=== PATIENT | female | born 1980 | race Caucasian/White ===

== ENCOUNTER 2017-01-23 05:10 | Inpatient (IN) ==
[2017-01-20 11:48] LABS: MANUAL DIFF NEEDED? NO; URINE SOURCE VOIDED
[2017-01-20 12:10] LABS: HEMATOCRIT 32.7 % (37.0-47.0); HEMOGLOBIN 10.1 g/dL (12.0-16.0); RBC 3.93 XMIL (4.2-5.4)
[2017-01-20 12:11] LABS: BASO% 0.5 % (0.0-0.8); EOS# 0.17 X1000 (0.0-0.7); EOS% 2.9 % (0.0-10.0); IMM GRAN# 0.01 X1000 (0.0-0.04); IMM GRAN% 0.2 % (0.0-0.5); LYMPH# 1.59 X1000 (1.2-3.4); LYMPH% 26.8 % (20.5-51.1); MCH 25.7 PG (27-31); MCHC 30.9 g/dL (33-37); MCV 83.2 FL (81-99); MONO# 0.37 X1000 (0.11-0.59); MONO% 6.2 % (1.7-9.3); MPV 10.6 FL (7.4-10.4); NEUT% 63.4 % (42.2-75.2); PLT 163 X1000 (130-400)
[2017-01-20 12:21] LABS: BILIRUBIN URINE NEGATIVE (NEGATIVE); BLOOD URINE 3+ (NEGATIVE); CLARITY CLEAR (CLEAR); COLOR YELLOW; GLUCOSE URINE NEGATIVE (NEGATIVE); LEUKOCYTES URINE NEGATIVE (NEGATIVE); NITRITE URINE NEGATIVE (NEGATIVE); PROTEIN URINE NEGATIVE (NEGATIVE); SP GRAVITY URINE 1.005; URINE MICROSCOPIC NEEDED? YES; UROBILINOGEN URINE NORMAL
[2017-01-20 12:22] LABS: URINE EPITHELIAL CELLS <10 /HPF (<10); URINE RBC <10 /HPF (<10); URINE WBC <10 /HPF (<10)
--- NOTE | 2017-01-22 22:41 | HISTORY AND PHYSICAL ---
HISTORY OF PRESENT ILLNESS: Medina is a 36-year-old white female 2, para 2 who presented office complaints of chronic pelvic pain. Patient also has difficulty with urination. The urodynamics did not show a stress incontinence but difficulty with pelvic relaxation. Patient has menorrhagia that is unresponsive to conservative measures. PAST MEDICAL HISTORY: Anxiety. PAST SURGICAL HISTORY: Tubal ligation. ALLERGIES: Penicillin. MEDICATIONS: BuSpar, Effexor. SOCIAL HISTORY: The patient is a smoker. PHYSICAL EXAM: GENERAL: White female in no apparent distress. VITAL SIGNS: Afebrile, vital signs stable. CARDIOVASCULAR: Regular rate, rhythm. LUNGS: Clear. ABDOMEN: Soft, nontender, cervix parous, uterus is small, mobile, nontender, no mass or tenderness. PLAN: Patient consent for laparoscopic assisted vaginal with bilateral salpingectomy. Risks of surgery include bleeding, infection, anesthesia, blood transfusion, exploratory laparotomy if complications arise all discussed at length, informed consent obtained. cc: Moy Hamm MD
[2017-01-23] MEDS ORDERED: DIPRIVAN 1% ONE ×2 (06:49)
[2017-01-23] MEDS ORDERED: VERSED ONE ×2 (06:50)
[2017-01-23] MEDS ORDERED: FENTANYL ONE ×4 (06:50→07:45)
[2017-01-23] MEDS ORDERED: EPHEDRINE ONE ×2 (06:50)
[2017-01-23] MEDS ORDERED: KEFZOL 1 GM/D5W 1 GM/50 ML IVPB ONE ×2 (06:52)
[2017-01-23] MEDS ORDERED: TRANSDERM-SCOP ONE ×2 (06:52)
[2017-01-23] MEDS ORDERED: LR 1,000 ML ONE ×9 (06:52→09:25)
[2017-01-23] MEDS ORDERED: SENSORCAINE 0.25%/EPI 1:200,000 ONE ×2 (06:54)
[2017-01-23 07:55] LABS: URINE MICROSCOPIC NEEDED? NO; URINE SOURCE CATH
[2017-01-23] MEDS ORDERED: LR 1,000 ML IV SCH ×4 (08:00→11:00)
[2017-01-23] MEDS ORDERED: KEFZOL 1 GM/D5W 1 GM/50 ML IVPB IV ONE (08:00)
[2017-01-23 08:02] LABS: BILIRUBIN URINE NEGATIVE (NEGATIVE); BLOOD URINE NEGATIVE (NEGATIVE); CLARITY CLEAR (CLEAR); COLOR YELLOW; GLUCOSE URINE NEGATIVE (NEGATIVE); LEUKOCYTES URINE NEGATIVE (NEGATIVE); NITRITE URINE NEGATIVE (NEGATIVE); PROTEIN URINE NEGATIVE (NEGATIVE); UROBILINOGEN URINE NORMAL
[2017-01-23] MEDS ORDERED: VENTOLIN HFA ONE ×2 (08:15)
[2017-01-23] MEDS ORDERED: ZOFRAN ONE ×2 (08:15)
[2017-01-23] MEDS ORDERED: TORADOL ONE ×2 (08:15)
[2017-01-23] MEDS ORDERED: XYLOCAINE-MPF 2% ONE ×2 (08:15)
[2017-01-23] MEDS ORDERED: QUELICIN ONE ×2 (08:15)
[2017-01-23] MEDS ORDERED: ZEMURON ONE ×2 (08:15)
[2017-01-23] MEDS ORDERED: NEOSTIGMINE ONE ×2 (08:15)
[2017-01-23] MEDS ORDERED: DECADRON ONE ×2 (08:15)
[2017-01-23] MEDS ORDERED: ROBINUL ONE ×2 (08:15)
[2017-01-23] MEDS: DILAUDID ONE ×8 (09:25→10:19)
[2017-01-23] MEDS ORDERED: DILAUDID PCA VIAL ONE (09:25)
[2017-01-23] MEDS ORDERED: ZOFRAN IV PRN ×3 (09:58→10:28)
[2017-01-23] MEDS ORDERED: DILAUDID-HP 30 MG in NS 27 ML IV PRN (09:58)
[2017-01-23] MEDS ORDERED: NARCAN IV PRN ×2 (09:58→10:03)
[2017-01-23] MEDS ORDERED: SODIUM CHLORIDE 0.9% INJ PRN ×2 (09:58→10:03)
[2017-01-23] MEDS ORDERED: PHENERGAN IV PRN ×2 (09:58→10:03)
[2017-01-23] MEDS ORDERED: DILAUDID PCA VIAL IV PRN (10:03)
[2017-01-23] MEDS ORDERED: OFIRMEV 1000 MG/ISOTONIC SOLN 1,000 MG/100 ML BOTTLE ONE (10:04)
[2017-01-23] MEDS ORDERED: AMBIEN PO PRN (10:08)
[2017-01-23] MEDS ORDERED: PERI MEDS (DERMOPLAST/NUPERCAINAL/TUCKS) MISC PRN (10:10)
[2017-01-23] MEDS ORDERED: ESTRADERM 0.05 MG/24 HR PATCH TD ONE ×2 (10:15→14:30)
[2017-01-23] MEDS ORDERED: EPIFOAM FOAM TOP SCH (10:15)
[2017-01-23] MEDS ORDERED: DEMEROL IV PRN (10:25)
[2017-01-23] MEDS ORDERED: PHENERGAN IM PRN (10:26)
[2017-01-23] MEDS ORDERED: NORCO-10 PO PRN (10:27)
[2017-01-23] MEDS ORDERED: NORCO-5 PO PRN (10:28)
[2017-01-23] MEDS ORDERED: ZOFRAN ODT PO PRN (10:29)
[2017-01-23] MEDS ORDERED: MYLICON PO PRN (10:30)
[2017-01-23] MEDS ORDERED: VALIUM ONE (10:58)
[2017-01-23] MEDS: OFIRMEV 1000 MG/ISOTONIC SOLN 1,000 MG/100 ML BOTTLE IV SCH ×3 (12:29→22:19)
[2017-01-23] MEDS: COLACE PO SCH ×2 (12:30→20:17)
[2017-01-23] MEDS: MYLICON PO SCH ×3 (13:05→20:17)
[2017-01-23] MEDS: TORADOL IV SCH ×2 (14:48→20:17)
[2017-01-23] MEDS: NICODERM PATCH TD SCH (15:21)
[2017-01-23] MEDS: LR 1,000 ML IV SCH ×2 (17:31→20:20)
--- NOTE | 2017-01-23 18:10 | Extremity Venous Study ---
EXAM: Venous U/S Right Leg HISTORY: calf pain TECHNIQUE: COMPARISON: None. FINDINGS: Right lower extremity venous Doppler ultrasound: There is normal flow and compressibility of the veins of the right lower extremity. No thrombus. Normal augmentation. IMPRESSION: No evidence of deep venous thrombosis. A pulmonary report was given at 5:52 PM Electronically signed by Freeman Cruz 01/23/2017 6:07 PM
[2017-01-24] MEDS: TORADOL IV SCH (02:18)
[2017-01-24] MEDS: LR 1,000 ML IV SCH ×2 (02:18→11:50)
[2017-01-24] MEDS: OFIRMEV 1000 MG/ISOTONIC SOLN 1,000 MG/100 ML BOTTLE IV SCH (04:30)
[2017-01-24 07:08] LABS: HEMOGLOBIN 8.5 g/dL (12.0-16.0)
[2017-01-24] MEDS ORDERED: D/C PCA XX ONE (08:30)
[2017-01-24] MEDS: NICODERM PATCH TD SCH (09:36)
[2017-01-24] MEDS: MYLICON PO SCH (09:36)
[2017-01-24] MEDS: COLACE PO SCH (09:36)
[2017-01-24 11:58] VITALS: BP 115/67
--- NOTE | 2017-01-24 14:10 | DISCHARGE SUMMARY ---
ADMISSION DATE: 01/23/2017 DISCHARGE DATE: 01/24/2017 ADMISSION DIAGNOSIS: Chronic pelvic pain with menorrhagia, adnexal mass. DISCHARGE DIAGNOSIS: Chronic pelvic pain with menorrhagia, adnexal mass with endometriosis. PRINCIPAL PROCEDURES: Laparoscopically-assisted vaginal with bilateral salpingo- oophorectomy. DISCHARGE DIET: Regular. DISCHARGE DISPOSITION: Home. DISCHARGE FOLLOWUP: Two weeks for incision check. DISCHARGE DISPOSITION: Home. DISCHARGE MEDICATIONS: 1. Percocet 10 #30. 2. Vivelle Dot patch 0.1 mg. DISCHARGE HEMATOCRIT: 28. PREOPERATIVE HEMATOCRIT: 32. POSTOPERATIVE COURSE: Complicated by right calf pain. Doppler ultrasound was negative. The patient did report having this pain prior to her surgery. cc: Moy Hamm MD
--- NOTE | 2017-02-14 02:38 | OPERATIVE NOTE ---
PREOPERATIVE DIAGNOSIS: Chronic pelvic pain. POSTOPERATIVE DIAGNOSES: 1. Chronic pelvic pain. 2. [employer] stage III endometriosis. PROCEDURE PERFORMED: Laparoscopic-assisted vaginal hysterectomy, with bilateral salpingo- oophorectomy. SURGEON: Dr. Emmanuel Hamm. BIOLOGY TUTOR: Dr. Shaila Sutton. ANESTHESIA: General endotracheal. ESTIMATED BLOOD LOSS: 200 mL. DRAINS: Lea catheter. DESCRIPTION OF PROCEDURE: The patient was taken to the operating room. She was prepped and draped in the usual sterile fashion after general anesthesia was administered. The patient was placed in hanging stirrups. Time-out was performed. Everybody in the room in agreement with the stated procedure. A small subumbilical incision was carried out with the scalpel. Veress needle placed, and insufflation was utilized. Once adequate pneumoperitoneum was achieved, an 11 mm port was placed through VersaStep sleeve. The patient was placed in deep Trendelenburg, and two 5 mm VersaStep ports placed in the right and left lateral margin of the rectus muscle respectively. Inspection of pelvis revealed extensive endometrial implants along the anterior and posterior cul de sac. Both adnexa appeared to have immature implants as well. Using the ligature, the infundibulopelvic ligament was clamped, cauterized, and cut on both sides. This was taken down through the broad ligament, which was easily dissected using the LigaSure. The anterior reflection of the peritoneum was then dissected, exposing the endopelvic fascia, and reflecting the bladder flap quite easily. Both uterine arteries were then clamped, cauterized, but were not cut. Next, our attention was turned vaginally, and weighted speculum was placed. The cervix was grasped with a Rhonda clamp. Cervix was infiltrated with 0.25% Marcaine with epinephrine circumferentially for hydrodissection. An anterior incision was then carried out along the cervical vaginal reflection. Anterior peritoneum was then easily entered, and the uterus was flipped anteriorly without difficulty. The remaining uterine artery pedicle was clamped, cut, and tied with Marycruz clamps and 0 Vicryl suture. Uterosacral ligaments were clamped, cut, tied, and held again with Marycruz clamps and 0 Vicryl suture. The uterus and cervix were then removed from the posterior vaginal reflexion with Ramila scissors. Vaginal cuff was then grounded with 0 Vicryl suture in a running locking fashion. Excellent hemostasis was noted. All counts were correct. The peritoneum was reapproximated with 0 Maxon in a running fashion, incorporating both uterosacral ligaments and ablating the posterior cul de sac. The vaginal cuff was then closed with 0 Vicryl suture in a [id number] fashion x3. Next, our attention turned abdominally after lace machine operator and assistants gloves were changed. Copious irrigation was used. The pelvis was reinspected, and overall noted to be hemostatic. Both ureters could be seen peristalsing without difficulty. All counts were correct. Trocars were then removed after CO2 was allowed to escape the abdominal peritoneal cavity. The trocar sites were closed with 3-0 Polysorb in inverted mattress fashion. 0.5% Marcaine with epinephrine was used for local anesthesia. The patient was taken to the recovery room in stable condition. cc: Moy Hamm MD
== END 2017-01-24 14:25 | disposition home or self-care (01) ==
LOC: P.WC 05:10
PROVIDERS: ADMIT Obstetrics & Gynecology; ATTEND Obstetrics & Gynecology

== ENCOUNTER 2019-01-03 19:45 | Observation (INO) ==
[2019-01-03 20:39] LABS: BASO# 0.02 X1000 (0.0-0.2); BASO% 0.2 % (0.0-0.8); EOS# 0.01 X1000 (0.0-0.7); EOS% 0.1 % (0.0-10.0); HEMOGLOBIN 14.5 g/dL (12.0-16.0); IMM GRAN# 0.02 X1000 (0.0-0.04); IMM GRAN% 0.2 % (0.0-0.5); LYMPH# 1.67 X1000 (1.2-3.4); LYMPH% 15.1 % (20.5-51.1); MCH 31.5 PG (27-31); MCHC 35.4 g/dL (33-37); MCV 89.1 FL (81-99); MONO# 0.93 X1000 (0.11-0.59); MONO% 8.4 % (1.7-9.3); NEUT# 8.43 X1000 (1.4-6.5); PLT 226 X1000 (130-400); RDW 13.7 % (11.5-14.5); WBC 11.08 X1000 (4.8-10.8)
[2019-01-03] MEDS ORDERED: ZOFRAN ODT PO ONE (20:41)
[2019-01-03 20:52] LABS: BILIRUBIN URINE NEGATIVE (NEGATIVE); BLOOD URINE 2+ (NEGATIVE); CLARITY SL. CLOUDY (CLEAR); COLOR AMBER; GLUCOSE URINE NEGATIVE (NEGATIVE); KETONE URINE 1+(Small) mg/dL (NEGATIVE); LEUKOCYTES URINE TRACE (NEGATIVE); NITRITE URINE NEGATIVE (NEGATIVE); PH URINE 6.5; PROTEIN URINE 1+(30 mg/dL) mg/dL (NEGATIVE); UROBILINOGEN URINE 1 mg/dL
[2019-01-03 20:53] LABS: URINE BACTERIA 1+ /HFP; URINE CAST NONE SEEN /LPF; URINE CRYSTAL NONE SEEN /HPF; URINE EPITHELIAL CELLS <10 /HPF (<10); URINE SOURCE CLEAN CATCH; URINE WBC <10 /HPF (<10); URINE YEAST NONE SEEN /HPF
[2019-01-03] MEDS ORDERED: ZOFRAN IV ONE (21:00)
--- NOTE | 2019-01-03 21:00 | PROVIDER DOCUMENTATION ---
This chart was entered by Sobeida Monsivais Scribe, acting as scribe for Terrell Nicholas MD. HPI-General Adult - General Chief Complaint: Nausea/Vomiting Stated Complaint: FEMALE , N/V Time Seen by Provider: 01/03/19 20:04 Source: patient Allergies/Adverse Reactions: Patient Allergies Allergy/AdvReac Type Severity Reaction Status Date / Time Penicillins Allergy Severe ANAPHYLAXIS Verified 09/07/18 12:26 hydroxyzine HCl * AdvReac Severe hallucinati Verified 09/07/18 12:26 [From Vistaril] ons hydroxyzine pamoate * AdvReac Severe hallucinati Verified 09/07/18 12:26 [From Vistaril] ons Home Medications: Home Medication List Medication Instructions Recorded Confirmed Last Taken Type Venlafaxine HCl [Effexor] 150 mg PO BID 08/22/14 01/12/17 05/04/15 History Clonazepam [Klonopin] 1 mg PO TID 10/13/14 01/12/17 05/04/15 History Buspirone [Buspar] 15 mg PO BID 05/05/15 01/12/17 05/04/15 History Ketorolac [Toradol] 10 mg PO Q6H PRN PRN #20 tablet 10/30/15 Unknown Rx - History of Present Illness -Gen Adult Nature of Presenting Problems: pt is a 38 year old white female with history of seizures, anxiety, and depression complaining of persistent nausea and vomiting since 2am yesterday. Denies any sick contacts at home. Went to PCP, Dr. Douglas Mcfarland, today and was told to come to ED because they could not hear any bowel sounds. Patient has been unable to keep anything down. Location of Pain/Injury: reports: abdomen Pain Radiation: reports: no radiation Quality of Pain: reports: aching Severity: reports: moderate Onset/Duration: reports: 2 days ago Timing: reports: still present Context/Activities at Onset: reports: none Modifying Factors: improves with: nothing Associated Symptoms: reports: anxiety, fever/chills (101), nausea, vomiting, weakness Similar Symptoms Previously?: No Recently seen or treated by another doctor?: No Review of Systems - Adult - REVIEW OF SYSTEMS - ADULT Constitutional: reports: no symptoms reported, fever. denies: chills Eyes: reports: no symptoms reported Ears, Nose, Mouth & Throat: reports: no symptoms reported Cardiovascular: denies: chest pain Respiratory: reports: no symptoms reported. denies: cough, shortness of breath, wheezing Gastrointestinal: reports: abdominal pain, diarrhea, nausea, vomiting Genitourinary: reports: no symptoms reported Musculoskeletal: reports: no symptoms reported Integumentary: reports: no symptoms reported Neurological: reports: no symptoms reported. denies: dizziness/vertigo, headache/migraines Endocrine: reports: no symptoms reported Hematologic/Lymphatic: reports: no symptoms reported Allergic/Immunologic: reports: no symptoms reported All Other Systems: Reviewed and Negative Past History - Adult - PAST MEDICAL HISTORY-ADULT Review of Records: reports: Old Records Reviewed, Nursing Assessment Review, Medications Reviewed, Social history reviewed & non-contributory. Major Childhood Illnesses: reports: denies history Cardiovascular: reports: denies history Respiratory: reports: denies history Gastrointestinal: reports: denies history Obstetrical/Gynecological: reports: denies history Genitourinary: reports: denies history Musculoskeletal: reports: denies history Neurological: reports: Seizures/Epilepsy Psychiatric: reports: anxiety, depression Endocrine/Immune: reports: denies history Other Conditions: reports: denies history - PRIOR SURGERIES/PROCEDURES Surgical/Procedure History: reports: hysterectomy, BTL, tonsillectomy, other - PRIOR HOSPITALIZATIONS Prior Hospitalizations: reports: for other non-related (sleep study) - IMMUNIZATION STATUS Flu Vaccine: NUTD - FAMILY HISTORY Family History: reviewed, not pertinent - SOCIAL HISTORY Living Situation: family Physical Exam-General - PHYSICAL EXAM-ADULT Initial Vital Signs Reviewed: Yes - CONSTITUTIONAL General Appearance: appears well, alert, no apparent distress - EYES Eyes: PERRL/EOMI, pink conjunctivae - HEAD, EARS, NOSE, MOUTH & THROAT HENMT: normocephalic/atraumatic, moist mucous membranes, normal ENT inspection, TMs normal - NECK Neck: non-tender, full range of motion, supple, normal inspection - RESPIRATORY Respiratory: lungs clear - CARDIOVASCULAR Cardiovascular: regular rate, rhythm - GASTROINTESTINAL (ABDOMEN) Abdominal Exam: non tender, soft, tenderness (diffuse tenderness) - MUSCULOSKELETAL Extremity: normal range of motion, non-tender, normal gait, normal inspection - SKIN Integumentary: normal color, warm/dry - NEUROLOGIC Neurologic: grossly normal - PSYCHIATRIC Psych/Mental Status: normal mood/affect, normal thought content, normal thought process, oriented x 3 Progress - PLAN OF CARE/RESULTS Progress/Plan/Lab Results: Vital Signs - 8 hr 01/03/19 19:49 Temperature 98.5 F Pulse Rate 86 Respiratory Rate 18 O2 Sat by Pulse Oximetry 100 Laboratory Results - last 24 hr 01/03/19 01/03/19 20:02 20:24 WBC 11.08 H RBC 4.60 Hgb 14.5 Hct 41.0 MCV 89.1 MCH 31.5 H MCHC 35.4 RDW Std Deviation 13.7 Plt Count 226 MPV 11.0 H Immature Gran % (Auto) 0.2 Neut % (Auto) 76.0 H Lymph % (Auto) 15.1 L Randall % (Auto) 8.4 Eos % (Auto) 0.1 Baso % (Auto) 0.2 Immature Gran # (Auto) 0.02 Neut # (Auto) 8.43 H Lymph # (Auto) 1.67 Randall # (Auto) 0.93 H Eos # (Auto) 0.01 Baso # (Auto) 0.02 Urine Source CLEAN CATCH Urine Color ELIZABETH Urine Clarity SL. CLOUDY A Urine pH 6.5 Ur Specific [place] 1.020 Urine Protein 1+(30 mg/dL) A Urine Ketones 1+(Small) A Urine Blood 2+ A Urine Nitrite NEGATIVE Urine Bilirubin NEGATIVE Urine Urobilinogen 1 Urine Microscopic RBC 10-20 A Urine WBC TRACE A Urine Microscopic WBC <10 Ur Epithelial Cells <10 Urine Crystals NONE SEEN Urine Bacteria 1+ Urine Casts NONE SEEN Urine Yeast NONE SEEN Urine Glucose NEGATIVE Orders Category Date Time Status AMYLASE [CHEM] Stat Lab 01/03/19 20:24 Received CBC WITH DIFF [HEME] Stat Lab 01/03/19 20:24 Completed COMPREHENSIVE METABOLIC PANEL [CHEM] Stat Lab 01/03/19 20:24 Received LIPASE [CHEM] Stat Lab 01/03/19 20:[address] W/POSS RFLX CULT [URINALYSIS] Stat Lab 01/03/19 20:02 Completed URINE CULTURE [RM] Routine Lab 01/03/19 20:54 Ordered Ondansetron Odt [Zofran Odt] Med 01/03/19 20:41 Discontinued 4 mg PO NOW ONE Result Diagrams: 01/03/19 20:24 01/03/19 20:24 - REASSESSMENT Reassessment #1 Time Reassessed: 23:45 Status: unchanged Reassessment Comment: continues to be nauseated and uncomfortable,abdomen is supple - CT/MRI 1 CT Study: Abdomen, Pelvis CT Results: NAD, no obstruction - CONSULTS/PCP/HOSPITALIST Notification #1 *Consult/PCP/Hospitalist*: Dr. Mcdowell, hospitalist Time Discussed: 01:20 Consult Disposition: Admit Departure - Departure Date of Disposition Decision: 01/04/19 Time of Disposition Decision: 01:21 DIAGNOSIS: Volume depletion Intractable nausea and vomiting Qualifiers: Vomiting type: unspecified Qualified Code(s): R11.2 - Nausea with vomiting, unspecified Hematuria Qualifiers: Hematuria type: unspecified type Qualified Code(s): R31.9 - Hematuria, unspecified Disposition: ADMITTED INPATIENT 09 Certified Medical Emergency: Emergent Condition: Stable Referrals and Follow-Ups: Douglas Cr MD [Primary Care Provider] - - Critical Care Note This patient required my direct & personal management of CC.: No Attestation - Physician/ MORAIMA Attestation Patient care was provided by Advanced Practice Provider:: No The physician spent face to face time with patient:: Yes Advanced Practice Provider documentation review:: Supervising physician onsite and consulted in the evaluation and care of this patient. The physician did have a face to face encounter with the patient. This chart was documented by the indicated scribe, (Sobeida Monsivais Scribe) and accurately reflects the services I performed and decisions made by me, Terrell Nicholas MD, as attested by the provider's signature.
[2019-01-03 21:10] LABS: AGAP 19; ALBUMIN 4.1 g/dL (3.5-5.0); ALKALINE PHOSPHATASE 88 U/L (32-104); BUN 6 mg/dL (8-22); CALCIUM 9.2 mg/dL (8.8-10.2); CHLORIDE 97 mmol/L (98-107); COSMO 269; CREATININE 0.6 mg/dL (0.5-0.9); ESTIMATED GFR > 60; GLUCOSE 113 mg/dL (70-104); GOT 21 U/L (10-30); GPT 12 U/L (10-36); LIPASE 36 U/L (13-60); POTASSIUM 3.7 mmol/L (3.5-5.1); SODIUM 135 mmol/L (136-145); TCO2 19 mmol/L (25-35); TOTAL PROTEIN 7.1 g/dL (6.3-8.3)
[2019-01-03] MEDS ORDERED: PHENERGAN IM ONE (22:12)
[2019-01-03] MEDS ORDERED: NS 1,000 ML IV ONE (23:36)
[2019-01-04] MEDS ORDERED: NS 1,000 ML IV ONE (01:39)
[2019-01-04] MEDS: PHENERGAN IM PRN ×4 (02:13→21:03)
[2019-01-04 03:09] LABS: UR AMPHETAMINES QUAL NONE DETECTED (NONE DETECT); UR BARBITUATES QUAL NONE DETECTED (NONE DETECT); UR BENZODIAZEPIN QUAL PRESUMPTIVE POSITIVE (NONE DETECT); UR COCAINE QUAL NONE DETECTED (NONE DETECT); UR METHADONE QUAL NONE DETECTED (NONE DETECT); UR METHAMPHETAMINE QUAL NONE DETECTED (NONE DETECT); UR OPIATES QUAL PRESUMPTIVE POSITIVE (NONE DETECT); UR OXYCODONE QUAL NONE DETECTED (NONE DETECT); UR PCP QUAL NONE DETECTED (NONE DETECT)
[2019-01-04 03:10] LABS: UR CANNABINOIDS QUAL PRESUMPTIVE POSITIVE (NONE DETECT); UR PROPOXYPHENE QUAL NONE DETECTED (NONE DETECT); UR TCA QUAL NONE DETECTED (NONE DETECT)
[2019-01-04] MEDS: ZOFRAN IV PRN ×3 (03:17→19:35)
[2019-01-04 05:07] LABS: INFLUENZA A NEGATIVE (NEGATIVE); INFLUENZA B NEGATIVE (NEGATIVE)
--- NOTE | 2019-01-04 06:12 | Diag Imaging Result Doc PS360 ---
EXAM: CT ABD/PELVIS W/IV CONT ONLY HISTORY: abdominal pain TECHNIQUE: CT abdomen and pelvis with intravenous contrast COMPARISON: None. FINDINGS: No calcified gallstones or adjacent inflammation. There are several tiny hepatic cysts. Normal spleen, pancreas, adrenal glands, and kidneys. No hydronephrosis. Normal aorta. The left renal vein goes behind the aorta. This is a normal variant. Normal appendix. No abscess. There is stool throughout the colon. No bowel obstruction. The urinary bladder is moderately distended and is normal. The uterus has been removed. No pelvic mass. IMPRESSION: 1.Mild constipation 2.Hysterectomy 3.A preliminary report was given at 11:21 PM on 01/03/2019 This exam was performed using automated exposure control, adjustment of mA or kV according to patient size, and/or use of iterative reconstruction technique. Electronically signed by Freeman Cruz 01/04/2019 6:09 AM
[2019-01-04 09:41] LABS: BASO# 0.01 X1000 (0.0-0.2); BASO% 0.1 % (0.0-0.8); EOS# 0.01 X1000 (0.0-0.7); EOS% 0.1 % (0.0-10.0); HEMOGLOBIN 13.5 g/dL (12.0-16.0); IMM GRAN# 0.01 X1000 (0.0-0.04); IMM GRAN% 0.1 % (0.0-0.5); LYMPH# 1.83 X1000 (1.2-3.4); MCH 30.8 PG (27-31); MCHC 34.6 g/dL (33-37); MCV 88.8 FL (81-99); MONO# 0.71 X1000 (0.11-0.59); MONO% 10.1 % (1.7-9.3); MPV 10.6 FL (7.4-10.4); NEUT# 4.47 X1000 (1.4-6.5); NEUT% 63.6 % (42.2-75.2); PLT 188 X1000 (130-400); RBC 4.39 XMIL (4.2-5.4); RDW 13.4 % (11.5-14.5); WBC 7.04 X1000 (4.8-10.8)
[2019-01-04 10:06] LABS: AGAP 10; ALBUMIN 3.7 g/dL (3.5-5.0); ALKALINE PHOSPHATASE 78 U/L (32-104); BUN 5 mg/dL (8-22); CALCIUM 8.5 mg/dL (8.8-10.2); CHLORIDE 101 mmol/L (98-107); COSMO 268; CREATININE 0.5 mg/dL (0.5-0.9); ESTIMATED GFR > 60; GLUCOSE 113 mg/dL (70-104); GOT 15 U/L (10-30); GPT 9 U/L (10-36); MAGNESIUM 1.6 mg/dL (1.5-2.7); POTASSIUM 2.9 mmol/L (3.5-5.1); SODIUM 135 mmol/L (136-145); TCO2 24 mmol/L (25-35); TOTAL PROTEIN 6.4 g/dL (6.3-8.3)
[2019-01-04] MEDS: POTASSIUM CHLORIDE 20 MEQ/SWI 20 MEQ/100 ML IVPB IV SCH ×2 (12:32→16:45)
[2019-01-04] MEDS: NS 1,000 ML IV SCH ×2 (13:51→22:47)
--- NOTE | 2019-01-04 13:59 | HISTORY AND PHYSICAL ---
CHIEF COMPLAINT: Nausea, vomiting, and abdominal pain. HISTORY OF PRESENT ILLNESS: This is a 38-year-old female with a reported history of seizures, anxiety, and depression. She presents to the Emergency Room complaining of nausea and vomiting for the past 36 hours. She states that she has been unable to take anything in orally since just after this episode started. She has not urinated in over 24 hours. She states that for the last 4 to 6 hours she has been dry heaving. She denied any black or bloody vomitus or stools. She did state that she had a subjective fever, chills, and generalized body aches. Of note, the patient does use marijuana, smoking it last within 48 hours prior to this incident. She went to her primary care physician prior to coming to the Emergency Room and upon examining the patient he sent her to the E.R. for evaluation. PAST MEDICAL HISTORY: 1. Seizures with the last one being many years ago. 2. Anxiety and depression. PAST SURGICAL HISTORY: Hysterectomy, tubal ligation, and endometrial surgery. SOCIAL HISTORY: She smokes about a pack a day. She uses marijuana. ALLERGIES: Penicillin and Vistaril with penicillin causing anaphylaxis and Vistaril causing hallucinations. HOME MEDICATIONS: A list will be obtained by the nursing staff and once verified we will review and restart it as appropriate. REVIEW OF SYSTEMS: Review of systems is discussed with the patient with pertinent positives stated in the HPI. She denied any syncope or dizziness, any chest pain or palpitations, any recent weight loss or weight gain, any night sweats, any shortness of breath or cough, any diarrhea or constipation, any black or bloody vomitus or stools, or any hematuria, dysuria, frequency, or urgency. PHYSICAL EXAMINATION: GENERAL: This is a 38-year-old female who is lying in the bed, drowsy but in no distress. VITAL SIGNS: Blood pressure is 135/72 with a heart rate of 79. Respirations are 18. Temperature is 98.7 oral with O2 saturations ranging from 97% to 98% on room air. EYES: Pupils are equal, round, and reactive to light. EOMs are intact. Sclerae are anicteric. HENT: Head is normocephalic, atraumatic. Mucous membranes are dry. NECK: Supple. Trachea is midline. CARDIOVASCULAR: Regular rate and rhythm. S1 and S2 are appreciated. No murmurs. She has no lower extremity edema. Calfs are nontender bilaterally. Peripheral pulses are palpable times 4 extremities. PULMONARY: Breath sounds are clear with no increased work of breathing noted. Chest rises and falls symmetrically with respiration. Chest wall is nontender to palpation. GASTROINTESTINAL: The abdomen is soft. She has some generalized tenderness. She is nondistended with bowel sounds in all 4 quadrants. SKIN: Warm and dry with no rashes or lesions noted. . NEUROLOGIC: She is alert and oriented times 3. Cranial nerves 2 through 12 are grossly intact. LABORATORY DATA: WBC is 11 with a hemoglobin of 14.5, hematocrit of 41, and platelets of 226. Sodium is 135, potassium 3.7, BUN 6, and creatinine 0.6 with a glucose of 113. Urinalysis reveals 2 + blood with 10-20 microscopic red blood cells and trace white blood cells but less than 10 microscopic white blood cells and epithelial cells. Toxicology urine drug screen is presumptive positive for opiates, benzodiazepines, and cannabinoids. Influenza A and B are negative. Urine culture revealed no growth. CT of the abdomen and pelvis revealed mild constipation and a hysterectomy. There is stool throughout the colon. No bowel obstruction. ASSESSMENT AND PLAN: 1. Dehydration. 2. Nausea and vomiting. 3. Recent cannabinoid use. 4. Microscopic hematuria. 5. Leukocytosis. PLAN: The patient has been admitted to the medical/surgical floor. She was given a liter bolus. We will continue IV hydration. We will trend electrolytes and replete as appropriate. We will recheck a CBC and CMP. She will remain n.p.o. as she has continued to be nauseated with dry heaves. For nausea we will continue Zofran every 4 hours p.r.n. and if nausea is not relieved we will add Phenergan 25 mg IM every 6 hours. Identify home medications and continue. I did discuss with the patient hyperemesis cannabinoid syndrome explaining that this could follow cannabinoid use. The patient did state understanding. She will remain n.p.o. and once able to tolerate p.o. we will start to advance her diet. Further treatments pending hospital course. Dictated by MAURICIO Sepulveda for Brain Mcdowell MD cc: MAURICIO Sepulveda MD
[2019-01-04] MEDS: CARAFATE PO SCH ×2 (15:24→21:03)
--- NOTE | 2019-01-05 00:31 | HISTORY AND PHYSICAL ---
ADDENDUM: CHIEF COMPLAINT: Nausea, vomiting. HISTORY OF PRESENT ILLNESS: Patient is a 38-year-old female who has a known history of seizures, anxiety, depression. She presented to the hospital with a 2-day history of nausea, vomiting, abdominal pain. Denies any sick contacts. States her nausea is actually improving a little bit currently. We will admit to the hospital. IV fluids. We will advance diet as tolerated. Further orders as needed. cc: Brain Mcdowell MD
[2019-01-05] MEDS: ZOFRAN IV PRN (01:56)
[2019-01-05] MEDS: PHENERGAN IM PRN ×2 (03:46→11:13)
[2019-01-05 06:23] LABS: BASO# 0.02 X1000 (0.0-0.2); BASO% 0.3 % (0.0-0.8); EOS# 0.02 X1000 (0.0-0.7); EOS% 0.3 % (0.0-10.0); HEMATOCRIT 40.9 % (37.0-47.0); HEMOGLOBIN 14.3 g/dL (12.0-16.0); IMM GRAN# 0.01 X1000 (0.0-0.04); IMM GRAN% 0.1 % (0.0-0.5); LYMPH# 1.76 X1000 (1.2-3.4); LYMPH% 25.8 % (20.5-51.1); MCH 31.2 PG (27-31); MCV 89.1 FL (81-99); MONO# 0.73 X1000 (0.11-0.59); MONO% 10.7 % (1.7-9.3); MPV 10.4 FL (7.4-10.4); NEUT# 4.28 X1000 (1.4-6.5); NEUT% 62.8 % (42.2-75.2); PLT 191 X1000 (130-400); RBC 4.59 XMIL (4.2-5.4); RDW 13.4 % (11.5-14.5); WBC 6.82 X1000 (4.8-10.8)
[2019-01-05] MEDS: NS 1,000 ML IV SCH (06:27)
[2019-01-05] MEDS: CARAFATE PO SCH ×4 (06:27→15:23)
[2019-01-05 07:01] LABS: AGAP 12; ALBUMIN 3.8 g/dL (3.5-5.0); ALKALINE PHOSPHATASE 80 U/L (32-104); BUN 6 mg/dL (8-22); CALCIUM 8.7 mg/dL (8.8-10.2); CHLORIDE 102 mmol/L (98-107); COSMO 272; CREATININE 0.5 mg/dL (0.5-0.9); ESTIMATED GFR > 60; GLUCOSE 114 mg/dL (70-104); GOT 18 U/L (10-30); GPT 16 U/L (10-36); POTASSIUM 3.1 mmol/L (3.5-5.1); SODIUM 137 mmol/L (136-145); TCO2 23 mmol/L (25-35); TOTAL PROTEIN 6.7 g/dL (6.3-8.3)
[2019-01-05] MEDS ORDERED: ZOFRAN ODT PO PRN (10:39)
[2019-01-05 12:32] VITALS: BP 124/76
[2019-01-05] MEDS ORDERED: KLOR-CON PO ONE (16:09)
--- NOTE | 2019-01-06 13:54 | DISCHARGE SUMMARY ---
ADMISSION DATE: 01/03/2019 DISCHARGE DATE: 01/05/2019 DIAGNOSES: 1. Dehydration resolved. 2. Nausea and vomiting resolved. 3. Recent cannabinoid use. 4. Microscopic hematuria with a negative urine culture. 5. Leukocytosis resolved. 6. Hypokalemia, repleted. DIAGNOSTICS: 1. CT of the abdomen and pelvis with IV contrast revealed mild constipation, hysterectomy. 2. Microbiology. Urine culture revealed no pathogenic growth. HOSPITAL COURSE: Ms Golden presented to the emergency room after having 36 hours of nausea and vomiting with very little intake in during this time. She had not urinated in over 24 hours upon coming to the emergency room. She was rehydrated, given IV Zofran and IM Phenergan and thankfully symptoms resolved, she has been able to take in full liquids with no nausea, vomiting, she did eat some solid food with no nausea vomiting although she refused to eat any further being afraid that she would get sick. DISCHARGE PHYSICAL EXAM: Vital signs: Blood pressure is 124/76 with a heart rate of 87, respirations are 18, temperature is 98.4 degrees oral with room air saturations 98-100%. This is a 38-year-old female who is sitting up in the chair at the bedside with visitors present, no distress. Cardiovascular: Regular rate and rhythm. S1 and S2 appreciated. Pulmonary: Breath sounds are clear with no increased work of breathing noted. Gastrointestinal: Abdomen soft, nontender, nondistended with bowel sounds in all 4 quadrants. Neurologic: She is alert, oriented x3. DISCHARGE MEDICATIONS: 1. Aripiprazole 10 mg p.o. at bedtime. 2. BuSpar 15 mg p.o. b.i.d. 3. Klonopin 1 mg p.o. t.i.d. p.r.n. anxiety. 4. Effexor 150 mg p.o. b.i.d. 5. Carafate 1 g before meals and hour sleep. 6. Zofran ODT 4 mg p.o. q.4-6 hours p.r.n. nausea, vomiting. FOLLOWUP: She is to follow up with her primary care physician Dr. Douglas Cr in a week. She needs to call Monday to schedule an appointment. At this time she needs to have another urinalysis as she did have microscopic hematuria and further workup will be per Dr. Cr' expertise. I did discuss with the patient the cannabinoid hyperemesis syndrome and cannabinoid cessation to which she voiced understanding. She is being discharged home in stable condition with family members. TIME SPENT: Greater than 30 minutes. Dictated by MAURICIO Sepulveda for Brain Mcdowell MD cc: MAURICIO Sepulveda MD
--- NOTE | 2019-01-06 14:55 | DISCHARGE SUMMARY ---
ADMISSION DATE: 01/03/2019 DISCHARGE DATE: 01/05/2019 ADDENDUM: Patient seen and examined by myself. Full note dictated and discussed with the nurse practitioner. On discharge, the patient is feeling better. She is still having some nausea, but notes it is tremendously improving. She denies any abdominal pain currently. States that overall, she is feeling better and she is keeping down liquids. Therefore, we will discharge her home. cc: Brain Mcdowell MD
== END 2019-01-05 17:29 | disposition home or self-care (01) ==
LOC: P.ED 19:45 → P.MEDSURG 19:45
PROVIDERS: ATTEND Family Medicine
CPT/HCPCS: 74177; 80053; 80104; 80301; 80305; 81001; 82150; 83690; 83735; 85025; 87088; 87275; 87276; 87804; 96372; 96374; 99285; A9270; G0431; G0434; G0477; J2405; J2550; J3480; J7030; Q9967